=== PATIENT | male | born 1985 | race Caucasian/White ===

== ENCOUNTER 2022-09-29 11:18 | Emergency (ER) | payer OTHER ==
[2022-09-29] MEDS ORDERED: Ketorolac 30 MG/ML SDV IM ONE (12:21)
[2022-09-29] MEDS ORDERED: Tamsulosin 0.4 MG Cap.ER PO ONE (12:48)
== END 2022-09-29 13:03 | disposition home or self-care (01) ==
LOC: JP.ED 11:18
DX: N23 Unspecified renal colic (principal); F17.210 Nicotine dependence, cigarettes, uncomplicated
CPT/HCPCS: 74176; 96372; 99284; A9270; J1885